=== PATIENT | male | born 1945 ===

== ENCOUNTER 2016-06-13 08:55 | Day surgery (SDC) | payer MEDICARE ==
[2016-06-13] MEDS ORDERED: Lactated Ringer's 500 ML IV ONE (10:28)
[2016-06-13] MEDS ORDERED: Propofol 10 mg/ml Inj (20 ML) ONE (11:58)
[2016-06-15 15:26] VITALS: O2SAT 100
[2016-06-15 15:32] VITALS: TEMP 96.9
[2016-06-15 15:33] VITALS: BP 103/53; PULSE 63; RESP 15
== END 2016-06-13 13:02 | disposition home or self-care (01) ==
LOC: H.ENDO 08:55
PROVIDERS: ATTEND Internal Medicine Gastroenterology
DX: Z12.11 Encounter for screening for malignant neoplasm of colon (principal); K64.8 Other hemorrhoids
CPT/HCPCS: 45378; J2001; J2704; J7120